=== PATIENT | male | born 1955 | race Hispanic/Latino ===

== ENCOUNTER 2018-10-22 14:23 | Emergency (ER) | payer BC ==
[~2018-10-22] VITALS: Ht 165.1 cm; Wt 77.1 kg
[2018-10-22] MEDS ORDERED: HYDRALAZINE HCL 20 MG/ML VIAL IV STA (14:44)
[2018-10-22 15:45] LABS: BASOPHILS # (AUTO) 0.1 (0.0-0.1); BASOPHILS % 0.6 % (0.0-1.0); EOSINOPHILS % 0.3 % (0.0-6.0); HEMATOCRIT 50.3 % (38.2-49.6); HEMOGLOBIN 16.9 g/dL (14.0-18.0); LYMPHOCYTES # (AUTO) 1.4 (1.0-3.2); LYMPHOCYTES % 13.4 % (18.0-39.1); MEAN CORPUSCULAR HEMOGLOBIN 29.3 pg (28-32); MEAN CORPUSCULAR HGB CONC 33.6 g/dL (31-35); MEAN CORPUSCULAR VOLUME 87.3 fL (81-99); MONOCYTES # (AUTO) 0.6 (0.2-0.8); NEUTROPHILS % 79.3 % (38.7-80.0); PLATELET COUNT 228 x10e3/uL (140-360); RED BLOOD COUNT 5.76 x10e6/uL (4.3-5.7); RED CELL DISTRIBUTION WIDTH 14.4 % (11.7-14.4)
[2018-10-22 16:11] LABS: ALBUMIN 4.1 g/dL (3.5-5.0); ALBUMIN/GLOBULIN RATIO 1.2 (0.8-2.0); ANION GAP 15.4 mmol/L (8-16); CALCIUM 9.7 mg/dL (8.4-10.2); CREATININE, SERUM 1.27 mg/dL (0.72-1.25); POTASSIUM 3.4 mmol/L (3.5-5.1)
--- NOTE | 2018-10-22 16:16 | Diagnostic Imaging Report ---
Examination: Single AP view of the chest. COMPARISON: None. INDICATION: Headache, hypertension, chest pain IMPRESSION: 1. Lines and Tubes: None 2. Lungs are grossly clear. No consolidation or effusion. 3. Cardiomediastinal silhouette is normal. Pulmonary vasculature is normal. 4. No acute bony abnormalities. Signed by: Dr. Brijesh Domingo M.D. on 10/22/2018 4:12 PM
[2018-10-22 16:22] LABS: CREATINE KINASE MB 2.6 ng/mL (0-5.0)
[2018-10-22] MEDS ORDERED: LISINOPRIL-HCT1 EAC1 (16:46)
[2018-10-22] MEDS ORDERED: METOPROLOL TART50 MG PO (16:46)
[2018-10-22 17:52] VITALS: BP 160/91
== END 2018-10-22 17:54 | disposition home or self-care (01) ==
LOC: ER 14:23
DX: R07.89 Other chest pain (principal); V65 Occupant of heavy transport vehicle injured in collision with railway train or railway vehicle; Y92.85 Railroad track as the place of occurrence of the external cause; I10 Essential (primary) hypertension
CPT/HCPCS: 36415; 71045; 80053; 82550; 82553; 84484; 85025; 93005; 99283; J0360